=== PATIENT | female | born 1960 | race Caucasian/White ===

== ENCOUNTER 2020-11-15 16:55 | Outpatient (RCR) | payer OTHER, SELFPAY ==
[2020-11-15] MEDS: COVID-19 VACC, MRNA(PFIZER)/PF 30 MCG/0.3 ML SYRINGE IM (14:28)
[2020-12-06] MEDS: COVID-19 VACC, MRNA(PFIZER)/PF 30 MCG/0.3 ML SYRINGE IM (14:05)
== END 2020-11-15 23:59 ==
LOC: IMMUN 16:55
PROVIDERS: PCP Family Medicine; Visit Provider Family Medicine
DX: Z23 Encounter for immunization (principal)
CPT/HCPCS: 0001A; 0002A; 91300

== ENCOUNTER → 2021-04-24 15:31 | Outpatient (CLI) | payer OTHER, SELFPAY ==
--- NOTE | 2021-04-24 15:34 | MRI_ITS ---
STUDY: MRI RIGHT REARFOOT WITHOUT CONTRAST REASON FOR EXAM: Female, 61 years old. PLANTAR FASCIITIS,heel pain x 18mos TECHNIQUE: Standardized fat and water weighted pulse sequences were obtained in all 3 orthogonal planes. COMPARISON: None. FINDINGS: Acute on chronic plantar fascial thickening with moderate thickening, plantar spur and calcaneal edema (sagittal image 11 series 5). Mild soft tissue swelling at the undersurface of the foot/heel. No solid, cystic or lipomatous lesions. Small Achilles enthesophyte. Normal muscle of the midfoot/hindfoot. Normal posterior tibialis tendon. Normal flexor digitorum longus tendon. Normal flexor hallucis longus tendon. Normal peroneus longus and brevis tendons. Normal tibialis anterior tendon. Normal extensor hallucis longus tendon. Normal extensor digitorum longus tendons. Normal distal tibiofibular syndesmotic ligamentous complex. Mild anterior and posterior tibial fibular ligament thickening (axial image 22 series 3). Normal subtalar ligaments and sinus tarsi. Normal deltoid ligamentous complexes. Normal plantar calcaneonavicular (spring) ligament. Normal tibiotalar articulation. Normal talar dome. Normal subtalar articulations. Normal talonavicular articulation. Normal calcaneocuboid articulation. Mild navicular-cuneiform arthrosis. Mild tarsometatarsal joint arthrosis. MRI/Lower Ext/No Jt/w/o IMPRESSION: Acute on chronic plantar fasciitis with plantar fascial thickening and plantar spur Chronic ATFL and PTFL sprains Small Achilles enthesophyte Mild osteoarthritic features Electronically Signed: Ahsan Antonio DO at 8:56 EDT Tel , Service support ,
== END ==
PROVIDERS: PCP Family Medicine; Visit Provider Podiatrist
DX: M72.2 Plantar fascial fibromatosis (principal); M77.31 Calcaneal spur, right foot
CPT/HCPCS: 73718